=== PATIENT | female | born 1955 | race Caucasian/White ===

== ENCOUNTER 2018-10-18 12:38 | Day surgery (SDC) | payer OTHER ==
[~2018-10-18] VITALS: Ht 162.6 cm; Wt 74.8 kg
[~2018-10-18 12:38] MED LIST: FENO145
[2018-10-18] MEDS ORDERED: ESTR2 (13:16)
== END 2018-10-18 14:50 | disposition home or self-care (01) ==
LOC: ORSCSDS 12:38
PROVIDERS: Surgery
PROC: 0DJD8ZZ Inspection of Lower Intestinal Tract, Via Natural or Artificial Opening Endoscopic (ICD-10-PCS; principal; 2018-10-18 14:00)
DX: Z12.11 Encounter for screening for malignant neoplasm of colon (principal); Z86.010 Personal history of colon polyps; Z80.0 Family history of malignant neoplasm of digestive organs; K64.8 Other hemorrhoids; E03.9 Hypothyroidism, unspecified; E78.5 Hyperlipidemia, unspecified; Z79.899 Other long term (current) drug therapy
CPT/HCPCS: J7120